=== PATIENT | female | born 1985 | race Two or more races ===

== ENCOUNTER → 2022-09-14 14:41 | Outpatient (BNVA) | payer SELFPAY | PROVIDERS: Visit Provider Physician Assistant Medical | DX: Z02.1 Encounter for pre-employment examination (principal) ==

== ENCOUNTER 2023-09-04 23:44 | Emergency (ER) | payer OTHER, MEDICAID, SELFPAY ==
--- NOTE | ~2023-09-04 | CT_ITS ---
EXAMINATION: CT ABDOMEN AND PELVIS WITH CONTRAST CLINICAL INFORMATION: Lower quadrant pain. COMPARISON: None available. TECHNIQUE: Multidetector volumetric images were obtained from the superior aspect of the liver through the pubic symphysis following administration 85 mL of Omnipaque 350 intravenous contrast. Sagittal and coronal reformatted images were obtained on the technologist's workstation. Oral contrast: No This CT examination was performed using dose optimization techniques as appropriate, variously including the following: *Automated exposure control *Adjustment of mA and/or kV according to patient size (this includes techniques or standardized protocols for targeted exams where dose is matched to indication/reason for exam; i.e. extremities or head) *Use of iterative reconstruction technique DLP: 701 mGy-cm FINDINGS: LUNG BASES: The visualized lung bases are unremarkable. LIVER, GALLBLADDER, AND BILIARY TREE: The liver is normal in size, shape, and attenuation. No focal hepatic lesion or biliary ductal dilatation is present. The gallbladder is unremarkable with no evidence of radiopaque gallstones, gallbladder wall thickening, or obvious pericholecystic inflammatory changes. PANCREAS: Unremarkable. SPLEEN: Unremarkable. ADRENAL GLANDS: Unremarkable. KIDNEYS AND URETERS: The kidneys are normal in size, shape, and attenuation. No hydronephrosis, hydroureter, or calculi seen. No perinephric stranding. BLADDER: Unremarkable. GASTROINTESTINAL TRACT: The small and large bowel are unremarkable. The appendix is unremarkable. ABDOMINAL WALL: No significant hernia is appreciated. LYMPH NODES: Normal. VASCULAR: Unremarkable. PELVIC VISCERA: Unremarkable. OSSEOUS STRUCTURES: Unremarkable. CT/CT abdomen pelvis w IV con IMPRESSION: No significant abnormality. Fleischner guidelines were followed.
[2023-09-05 00:33] VITALS: BP 109/77; PULSE 74; RESP 16; TEMP 37; O2SAT 97; BMI 33.0
[2023-09-05 00:51] LABS: MANUAL DIFF FLAG NO
[2023-09-05 00:56] LABS: Basophils Percent Auto 0.3 % (0-2); Eosinophils Absolute Auto 0.2 X10*3/uL (0.0-0.4); Eosinophils Percent Auto 1.7 % (0-4); Hematocrit 34.1 % (37.0-47.0); Hemoglobin 10.8 g/dl (12.0-16.0); Imm Gran Abs Auto 0.02 X10*3/uL (0.00-0.03); Imm Gran Pct Auto 0.2 % (0.0-0.4); Lymphocytes Absolute Auto 1.7 X10*3/uL (1.2-4.9); Lymphocytes Percent Auto 17.8 % (20-40); Mean Corpuscular HGB Conc 31.7 g/dl (31.0-35.0); Mean Corpuscular Hemoglobin 23.8 pg (27.0-33.0); Mean Corpuscular Volume 75.3 fL (80.0-98.0); Mean Platelet Volume 9.6 fL (9.4-12.3); Monocytes Absolute Auto 0.8 X10*3/uL (0.1-1.2); Monocytes Percent Auto 8.1 % (2-11); Neutrophils Absolute Auto 6.7 x10*3/uL (2.0-8.3); Neutrophils Percent Auto 71.9 % (45-73); Platelet Count 405 X10*3/uL (160-400); Red Blood Count 4.53 X10*6/uL (4.20-5.50); Red Cell Distribution Width 16.7 % (11.0-16.0); White Blood Count 9.3 X10*3/uL (4.8-10.8)
[2023-09-05 01:00] LABS: Appearance Urine Clear; Color Urine Yellow; Glucose Urine UA Negative (Negative); Leukocyte Esterase Urine Negative (Negative); Nitrite Urine Negative (Negative); Specific Gravity - Urine 1.025 (1.005-1.025); Urine Blood Negative (Negative); Urine Ketones Negative (Negative); Urine Protein Negative (Neg-Trace)
[2023-09-05 01:01] LABS: UPreg QC Valid YES; Urine Pregnancy NEGATIVE (NEGATIVE)
[2023-09-05 01:06] LABS: Alanine Aminotransferase 11 U/L (0-31); Alkaline Phosphatase 60 U/L (39-117); Anion Gap 12 (12-20); Aspartate Amino Transferase 14 U/L (5-31); Bilirubin Total 0.2 mg/dL (0.0-1.0); Blood Urea Nitrogen 15 mg/dL (9-16); Calcium 8.9 mg/dL (8.4-10.2); Carbon Dioxide 24 mmol/L (22-29); Chloride 109 mmol/L (96-108); Creatinine Clr Calc Pharmacy 82.8; Estimated Glomerular Filt Rate > 60; Glucose Random 96 mg/dL (60-115); Potassium 3.5 mmol/L (3.3-5.1); Sodium 141 mmol/L (135-145); Total Protein 7.4 g/dL (6.5-8.0)
--- NOTE | 2023-09-05 01:33 | ED_ITS ---
HPI - Abdominal Pain General Chief Complaint: Abdominal Pain Stated Complaint: LLQ pain Time Seen by Provider: 09/05/23 01:27 Source: patient Mode of arrival: ambulatory Limitations: no limitations History of Present Illness HPI narrative: Patient comes to the emergency room complaining of 20 hours of left lower quadrant pain. Patient states that the pain has been constant. Patient woke up feeling well but suddenly when she started walking realized that she had left lower quadrant pain. Patient denies nausea vomiting or diarrhea, no fever chills, no URI or UTI symptoms, denies hematuria. Patient denies any abdominal surgeries. Patient states that when she was 16-year-old she had a small bowel obstruction for unclear reason and was hospitalized for 2 weeks. Patient states that about a year ago she had a liposuction. Related Data Previous Rx's Medication Instructions Recorded tramadol 50 mg tablet 50 mg PO BID PRN pain #7 tabs 09/05/23 Allergies Allergy/AdvReac Type Severity Reaction Status Date / Time latex Allergy Facial Verified 09/05/23 00:32 Swelling Review of Systems Review of Systems Constitutional : No Weight loss, No Fever, No Chills, No Night Sweats, No Fatigue, No Malaise ENT/Mouth : No Hearing loss, No Ear Pain, No Nasal Congestion, No Sinus Pain, No Hoarseness, No sore throat, No Rhinorrhea, No Swallowing Difficulty Eyes: No Eye Pain, No Swelling, No Redness, No Foreign Body, No Discharge, No Vision Changes Cardiovascular : No Chest Pain, No SOB, No Dyspnea on Exertion, No Orthopnea, No Edema, No Palpitations Respiratory : No Cough, No Sputum, No Wheezing, No Smoke Exposure, No Dyspnea Gastrointestinal : No Nausea, No Vomiting, No Diarrhea, No Constipation, complaining of bilateral lower quadrant pain Genitourinary : no irregular bleeding, No Dysuria, No Urinary Frequency, No Hematuria, No Urinary Incontinence, No Urgency, No Flank Pain, No Urinary Flow Changes, No Hesitancy Musculoskeletal : No joint pain, No Myalgias, No Joint Swelling Skin : No Skin Lesions, No rash Neuro : No Weakness, No Numbness, No Paresthesias, No Loss of Consciousness, No Dizziness, No Headache Psych : No Anxiety/Panic, No Depression, No SI/HI/AH/VH, No Social Issues, Heme/Lymph: No Bruising, No Bleeding,No Lymphadenopathy Endocrine : No Polyuria, No Polydipsia, No Temperature Intolerance [facility] Social History Social History Smoked in Last 30 Days: No Use of substances other than those prescribed or required for medical reasons: No Advance Directives: No Advance Directives Information Provided: No Physical Exam ED Vital Signs: Vital Signs - 24 hr 09/05/23 00:33 09/05/23 03:20 Temperature 98.6 F 98.1 F Pulse Rate 74 70 Respiratory Rate 16 16 Blood Pressure 109/77 115/70 Pulse Oximetry 97 98 Oxygen Delivery Method Room Air Room Air BMI result Body Mass Index 33.0 Const Other: Appearance: Alert. Oriented X3. No acute distress. Eyes: Pupils equal, round and reactive to light. ENT: Pharynx normal. Neck: Normal inspection. Neck supple. No lymph nodes noted. No crepitus CVS: Normal heart rate and rhythm. Pulses normal. Normal S1 and S2 Respiratory: No respiratory distress. Breath sounds normal. No Wheezing. No rales Abdomen: Soft , bilateral tenderness in both lower quadrants, guarding, no rebound, patient has lumpy Skin in both lower quadrants. No crepitus Skin: Skin warm and dry. Normal skin color. Normal skin turgor. Extremities: No lower extremity edema. No Lacerations. No Rash Neuro: Oriented X 3. No motor deficit. No sensory deficit. Moving all extremities. No slurred speech. CN 2 through 12 grossly intact Psych: calm, cooperative, normal affect Course Course Course Narrative: CT scan pending Medical Decision Making Medical Decision Making [facility] Narrative: -my interpretation of labs: Patient's hematology shows a hemoglobin of 10.8, bit lower than usual. Patient denies rectal bleeding. Chemistry normal, LFTs normal, urinalysis negative. Urine negative. -at this time, patient declined pain medication -CT scan of the abdomen does not show any acute abnormality. Differential Diagnosis Differential Diagnoses: The differential diagnosis associated with the presentation includes (Diverticulitis, diverticulosis, SBO, functional abdominal pain, kidney stone) Admission/Observation Consideration of admission/observation: Escalation of care including admission/observation considered (Given patient's history and presentation, patient was considered) Lab Data [facility] Lab Attestation statement: I reviewed the patient's lab results. 09/05/23 00:47 09/05/23 00:47 Labs: Lab Results 09/05/23 Range/Units 00:47 WBC 9.3 (4.8-10.8) X10*3/uL RBC 4.53 (4.20-5.50) X10*6/uL Hgb 10.8 L (12.0-16.0) g/dl Hct 34.1 L (37.0-47.0) % MCV 75.3 L (80.0-98.0) fL MCH 23.8 L (27.0-33.0) pg MCHC 31.7 (31.0-35.0) g/dl RDW 16.7 H (11.0-16.0) % Plt Count 405 H (160-400) X10*3/uL MPV 9.6 (9.4-12.3) fL Immature Gran % (Auto) 0.2 (0.0-0.4) % Neut % (Auto) 71.9 (45-73) % Lymph % (Auto) 17.8 L (20-40) % Drew % (Auto) 8.1 (2-11) % Eos % (Auto) 1.7 (0-4) % Baso % (Auto) 0.3 (0-2) % Lymph # (Auto) 1.7 (1.2-4.9) X10*3/uL Drew # (Auto) 0.8 (0.1-1.2) X10*3/uL Eos # (Auto) 0.2 (0.0-0.4) X10*3/uL Baso # (Auto) 0.0 (0.0-0.2) X10*3/uL Abs Immat Gran (auto) 0.02 (0.00-0.03) X10*3/uL Absolute Neuts (auto) 6.7 (2.0-8.3) x10*3/uL Absolute Nucleated RBC 0.000 (0.0-0.012) X10*3/uL Nucleated RBC % (auto) 0.0 (0.0-0.2) /100WBC Sodium 141 (135-145) mmol/L Potassium 3.5 (3.3-5.1) mmol/L Chloride 109 H (96-108) mmol/L Carbon Dioxide 24 (22-29) mmol/L Anion Gap 12 (12-20) BUN 15 (9-16) mg/dL Creatinine 0.93 (0.5-1.4) mg/dL Estim Creat Clear Calc 82.8 Estimated GFR > 60 Random Glucose 96 (60-115) mg/dL Calcium 8.9 (8.4-10.2) mg/dL Total Bilirubin 0.2 (0.0-1.0) mg/dL AST 14 (5-31) U/L ALT 11 (0-31) U/L Alkaline Phosphatase 60 (39-117) U/L Total Protein 7.4 (6.5-8.0) g/dL Albumin 4.0 (3.5-5.0) g/dL Urine Color Yellow Urine Appearance Clear Urine pH 7.0 (5.0-9.0) Ur Specific [place] 1.025 (1.005-1.025) Urine Protein Negative (Neg-Trace) mg/dL Urine Glucose (UA) Negative (Negative) mg/dL Urine Ketones Negative (Negative) mg/dL Urine Blood Negative (Negative) Urine Nitrite Negative (Negative) Ur Leukocyte Esterase Negative (Negative) Urine Test NEGATIVE (NEGATIVE) Independent Interpretation I performed an independent interpretation of an: CT Scan Radiology Impression Discussion of test interpretation with radiology: I have reviewed the radiologist's reading. Radiologist Impression: FINDINGS: LUNG BASES: The visualized lung bases are unremarkable. LIVER, GALLBLADDER, AND BILIARY TREE: The liver is normal in size, shape, and attenuation. No focal hepatic lesion or biliary ductal dilatation is present. The gallbladder is unremarkable with no evidence of radiopaque gallstones, gallbladder wall thickening, or obvious pericholecystic inflammatory changes. PANCREAS: Unremarkable. SPLEEN: Unremarkable. ADRENAL GLANDS: Unremarkable. KIDNEYS AND URETERS: The kidneys are normal in size, shape, and attenuation. No hydronephrosis, hydroureter, or calculi seen. No perinephric stranding. BLADDER: Unremarkable. GASTROINTESTINAL TRACT: The small and large bowel are unremarkable. The appendix is unremarkable. ABDOMINAL WALL: No significant hernia is appreciated. LYMPH NODES: Normal. VASCULAR: Unremarkable. PELVIC VISCERA: Unremarkable. OSSEOUS STRUCTURES: Unremarkable. CT/CT abdomen pelvis w IV con IMPRESSION: No significant abnormality. Fleischner guidelines were followed. Medications Administered Discontinued Medications Generic Name Dose Route Start Last Admin Trade Name Freq PRN Reason Stop Dose Admin Iohexol 100 ml 09/05/23 02:04 09/05/23 02:05 Iohexol 350 Mg/Ml 100 Ml Infus..Btl IV 09/05/23 02:05 100 ml ONCE ONE Administration Critical Care Time Critical Care Time Critical Care Time: Yes Total Critical Care Time: 30 Attestation: I have personally provided critical care time. Time includes review of lab data, radiology results, discussion with consultants, and monitoring for potential decompensation. Intervention performed as documented. Discharge Plan Discharge Clinical Impression: Abdominal pain Patient Disposition: Home, Self-Care Instructions: Abdominal Pain (ED) Additional Instructions: Please follow-up with your primary care physician tomorrow. If you have any worsening or new symptoms, please return to the emergency room or call 911 Prescriptions: New tramadol 50 mg tablet 50 mg PO BID PRN (Reason: pain) Qty: 7 0RF
[2023-09-05] MEDS: iohexoL 350 MG/ML 100 ML INFUS..BTL IV (02:05)
[2023-09-05 03:20] VITALS: BP 115/70; PULSE 70; RESP 16; TEMP 36.7; O2SAT 98
[2023-09-05 04:32] VITALS: BP 115/70; PULSE 70; RESP 16; TEMP 36.7; O2SAT 98
== END 2023-09-05 04:35 | disposition home or self-care (01) ==
PROVIDERS: Emergency Provider Emergency Medicine
DX: R10.32 Left lower quadrant pain (principal)
CPT/HCPCS: 36415; 74177; 80053; 81003; 81025; 85025; 99284; Q9967

== ENCOUNTER 2024-01-29 18:27 | Emergency (ER) | payer OTHER, SELFPAY ==
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
[2024-01-29 18:40] VITALS: BP 139/85; PULSE 85; RESP 18; TEMP 36.7; O2SAT 98; BMI 30.6
--- OUTSIDE RECORDS SUMMARY | 2024-01-29 19:38 | XMS_ITS | Continuity of Care Document ---
Author Organization [facility] Address [address], [address], [address] [place] [id number]- Care Team Providers Care Template Fitter Name Role Phone Manuel NIELSEN, Dorothy Primary Care Physician Encounter [facility] Date(s): 03/31/22 - 04/07/22 [facility] [address], [address], [address] [place] [id number]- Attending Physician: Pal NIELSEN, Benjy Terry Referring Physician: Dorothy Jackson NP Allergies, Adverse Reactions, Alerts Substance Reaction Severity Status predniSONE 1 Active 1lips swelled Immunizations Given and Recorded Vaccine Date Status Refusal Reason tetanus/diphtheria/pertussis, acel(Tdap) 1 04/07/22 Given influenza virus vaccine, inactivated 2 04/07/22 Gi gina SARS-CoV-2 (COVID-19) mRNA BNT-162b2 vac 08/04/20 Recorded Tet/diphth/pertussis, acel (oldterm) 3 04/07/11 Gi gina Fluarix (oldterm) 4 04/07/11 Given Human Papillomavirus Vaccine 5 08/12/10 Given Human Papillomavirus Vaccine 6 05/27/10 Given Human Papillomavirus Vaccine 7 03/04/10 Given Fluzone (oldterm) 8 05/12/10 Given 1Result Comment: [id number] 2Result Comment: NDC [id number] 3Admin Note: 05/08/08 VIS Given. 4Admin Note: 01/13/11 VIS Given. 5Admin Note: VIS Given. 6Admin Note: 07/23/06 VIS Given. 7Admin Note: 07/23/06 VIS Given. Pt. left 10minutes post-injection asymptomatic. 8Admin Note: 01/28/10 VIS Given. Medications Strattera 60 mg oral capsule 0 Refills, Maintenance, 03/17/21 16:24:00 EDT, Partial fill upon patient request if the prescription is for a schedule II opioid drug. Start Date: 03/17/21 Status: Ordered SUMAtriptan 25 mg oral tablet 1 tablet = 25 mg, By Mouth, Once, PRN for migraine headache, take at onset of bad migraine. no refill in under 30 days, # 9 tablet, 6 Refills, Soft Stop, 03/31/22 8:40:00 EDT, Tablet, [id number], lowering dose., 162.1, cm, 03/17/21 14:49:00 E... Start Date: 03/31/22 Status: Ordered topiramate 25 mg oral tablet 3 tablet = 75 mg, By Mouth, Daily at bedtime, # 90 tablet, 6 Refills, Maintenance, 03/31/22 8:39:00EDT, Tablet, [id number], changing to the 25mg tabs., 162.1, cm, 03/17/21 14:49:00 EDT, Height Start Date: 03/31/22 Stop Date: 10/27/22 Status: Ordered Problem List Condition Confirmation Course Effective Dates Status H ealth Status Informant Sterilization Confirmed Active Cosmetic surgery requested Confirmed Active Depo-provera injection given Confirmed Active 9 VD x 2 Confirmed Active Headache Confirmed Active History of seizures 1 Confirmed Active Iron deficiency anemia Confirmed Active Well woman exam Confirmed Active 1none since age 4 Social History Social History Type Response Smoking Status Former smoker, quit more than 30 days ago; Other: not for 15 years; entered on: 04/07/22 Sex Patient Care team information Personnel Name: Dorothy Jackson NP Address: Address: [address] [place] [id number]
--- OUTSIDE RECORDS SUMMARY | 2024-01-29 19:38 | XMS_ITS | Continuity of Care Document ---
Author Organization [facility] Adult Address [address] [place] [address]- Care Team Providers Care Plastic Bubble Packer Name Role Phone Manuel NIELSEN, Dorothy Primary Care Physician [facility] Date(s): 01/27/23 - 05/27/23 [facility] Adult [address] [place] [address]- Attending Physician: Dorothy Jackson NP Allergies, Adverse Reactions, Alerts Substance Reaction Severity Status predniSONE 1 Active Latex Active 1lips swelled Immunizations Given and Recorded Vaccine Date Status Refusal Reason influenza virus vaccine, inactivated 1 05/10/23 Gi gnia influenza virus vaccine, inactivated 2 04/07/22 Gi gina tetanus/diphtheria/pertussis, acel(Tdap) 3 04/07/22 Given [id number] 12y+ bivalent booster vax 03/10/22 Recorded SARS-CoV-2 mRNA (qbypipy-ihqg-yqsbe) vax 07/15/21 Recorded SARS-CoV-2 (COVID-19) mRNA BNT-162b2 vac 08/04/20 Recorded SARS-CoV-2 (COVID-19) mRNA BNT-162b2 vac 07/14/20 Recorded Tet/diphth/pertussis, acel (oldterm) 4 04/07/11 Gi gina Fluarix (oldterm) 5 04/07/11 Given Human Papillomavirus Vaccine 6 08/12/10 Given Human Papillomavirus Vaccine 7 05/27/10 Given Human Papillomavirus Vaccine 8 03/04/10 Given Fluzone (oldterm) 9 05/12/10 Given 1Result Comment: [facility] [id number] 2Result Comment: [facility] [id number] 3Result Comment: [id number] 4Admin Note: 05/08/08 VIS Given. 5Admin Note: 01/13/11 VIS Given. 6Admin Note: VIS Given. 7Admin Note: 07/23/06 VIS Given. 8Admin Note: 07/23/06 VIS Given. Pt. left 10minutes post-injection asymptomatic. 9Admin Note: 01/28/10 VIS Given. Medications Adderall By Mouth, 2 times a day, 0 Refills, Maintenance, 02/15/23 9:10:00 EDT, Partial fill upon patient request if the prescription is for a schedule II opioid drug. Start Date: 02/15/23 Status: Ordered ferrous sulfate 325 mg oral enteric coated tablet 325 mg, 1, tablet, By Mouth, 2 times a day, # 180 tablet, Refills 3, Tot. Refills 3, Maintenance, 05/11/23 7:13:00 EST, Route to Pharmacy Electronically, [facility]/pharmacy #[id number], Partial fill upon patientrequest if the prescription is for a schedule II op... Start Date: 05/11/23 Stop Date: 05/05/24 Status: Ordered Strattera 60 mg oral capsule 0 Refills, Maintenance, 03/17/21 16:24:00 EDT, Partial fill upon patient request if the prescription is for a schedule II opioid drug. Start Date: 03/17/21 Status: Ordered SUMAtriptan 25 mg oral tablet 1 tablet = 25 mg, By Mouth, Once, PRN for migraine headache, take at onset of bad migraine. no refill in under 30 days. 9 tabs per 30 days, # 9 tablet, 6 Refills, Soft Stop, 07/02/22 15:26:00 EST, Tablet, [id number], lowering dose., 160.5, cm... Start Date: 07/02/22 Status: Ordered topiramate 100 mg oral tablet 1 tablet = 100 mg, By Mouth, Daily at bedtime, # 30 tablet, 8 Refills, Maintenance, 09/10/22 16:56:00 EDT, Tablet, [id number], Partial fill upon patient request if the prescription is for a schedule II opioid drug., 160.5, cm, 04/21/22 7:35:00... Start Date: 09/10/22 Stop Date: 06/07/23 Status: Ordered Vitamin C 500 mg oral tablet 1 tablet = 500 mg, By Mouth, 2 times a day, # 180 tablet, 3 Refills, Maintenance, 05/11/23 7:13:00 EST, Tablet, [id number], Partial fill upon patient request if the prescription is for a schedule II opioid drug., 159.3, cm, 05/10/23 8:11:00 ES... Start Date: 05/11/23 Stop Date: 05/05/24 Status: Ordered Problem List Condition Confirmation Course Effective Dates Status H ealth Status Informant Sterilization Confirmed Active Cosmetic surgery requested Confirmed Active Depo-provera injection given Confirmed Active 9 VD x 2 Confirmed Active Headache Confirmed Active History of seizures 1 Confirmed Active Iron deficiency anemia Confirmed Active Well woman exam Confirmed Active Obese class I Confirmed Active 1none since age 4 Social History Social History Type Response Smoking Status Former smoker, quit more than 30 days ago; Other: not for 15 years; entered on: 04/07/22 Sex Patient Care team information Care Team Personnel Name: Dorothy Jackson NP Position: [facility] PCO Associate Professional Member Role: PCP Address: Address: [address] [place] [id number]- Care Team Related Persons Name: AC BERRY Address: home [address] [place] [address]
--- OUTSIDE RECORDS SUMMARY | 2024-01-29 19:38 | XMS_ITS | Continuity of Care Document ---
Author Organization [facility] Address [address] [place] [address]- Care Team Providers Care Mine Car Mechanic Name Role Phone Dorothy Jackson NP Primary Care Physician Encounter [facility] Date(s): 07/10/21 - 08/09/21 [facility] [address] [address]- Attending Physician: Daniel Mercado Admitting Physician: Daniel Mercado Referring Physician: AdmtrDaniel Allergies, Adverse Reactions, Alerts Substance Reaction Severity Status predniSONE 1 Active 1lips swelled Immunizations Given and Recorded Vaccine Date Status Refusal Reason SARS-CoV-2 (COVID-19) mRNA BNT-162b2 vac 08/04/20 Recorded Tet/diphth/pertussis, acel (oldterm) 1 04/07/11 Gi gina Fluarix (oldterm) 2 04/07/11 Given Human Papillomavirus Vaccine 3 08/12/10 Given Human Papillomavirus Vaccine 4 05/27/10 Given Human Papillomavirus Vaccine 5 03/04/10 Given Fluzone (oldterm) 6 05/12/10 Given 1Admin Note: 05/08/08 VIS Given. 2Admin Note: 01/13/11 VIS Given. 3Admin Note: VIS Given. 4Admin Note: 07/23/06 VIS Given. 5Admin Note: 07/23/06 VIS Given. Pt. left 10minutes post-injection asymptomatic. 6Admin Note: 01/28/10 VIS Given. Medications Strattera 60 mg oral capsule 0 Refills, Maintenance, 03/17/21 16:24:00 EDT, Partial fill upon patient request if the prescription is for a schedule II opioid drug. Start Date: 03/17/21 Status: Ordered Problem List Condition Effective Dates Status Health Status Inform ant Chlamydia infection(Confirmed) 1 02/12/12 Active Sterilization(Confirmed) Active Cosmetic surgery requested(Confirmed) Active Depo-provera injection given(Confirmed) Active 9 VD x 2(Confirmed) Active Headache(Confirmed) Active History of seizures(Confirmed) 2 Active Iron deficiency anemia(Confirmed) Active Well woman exam(Confirmed) Active 1tx pending per aniceto (standing orders)-pt notified; to do pt's and expedited partner therapy as well. 2none since age 4 Social History Social History Type Response Smoking Status Former smoker, quit more than 30 days ago; Other: Quit 10+ years ago; entered on: 03/17/21 Sex
--- OUTSIDE RECORDS SUMMARY | 2024-01-29 19:38 | XMS_ITS | Continuity of Care Document ---
Author Organization [facility] Adult Address [address] [place] [address]- Care Team Providers Care Stripping Shovel Oiler Name Role Phone Dorothy Jackson NP Primary Care Physician Encounter [facility] Date(s): 04/07/22 - 04/14/22 [facility] Adult [address] [place] [phone]- Encounter Diagnosis Adult general medical exam(Discharge Diagnosis) - 04/07/22 Headache(Discharge Diagnosis) - 04/07/22 Attending Physician: Dorothy Jackson NP Allergies, Adverse [...] Fluzone (oldterm) 8 05/12/10 Given 1Result Comment: [id number] 2Result Comment: [facility] [id number] 3Admin Note: 05/08/08 VIS Given. 4Admin Note: [...] exam Confirmed Active 1none since age 4 Diagnosis Diagnosis Type Effective Dates Health Status Cl inical Service Informant Adult general medical exam Discharge Diagnosis 04/07/22 Headache Discharge Diagnosis 04/07/22 Vital Signs Most recent to oldest [Reference Range]: 1 Height 160.5 cm (04/07/22 9:36 AM) Weight 76.4 kg (04/07/22 9:36 AM) Pulse Rate [55-90 bpm] 55 bpm (04/07/22 9:36 AM) Body Mass Index [18.5-24.99 kg/m2] 29.66 kg/m2 *H* (04/07/22 9:36 AM) Blood Pressure [90-138/55-84 mm Hg] 102/ 62mm Hg (04/07/22 9:36 AM) Temperature [96.8-100.4 DegF] 98.6 DegF (04/07/22 9:36 AM) Mode of Delivery (Oxygen) Room air (04/07/22 9:36 AM) Blood pressure sites Arm, left (04/07/22 9:36 AM) Temperature Route Oral (04/07/22 9:36 AM) Weight Obtained Via Standing scale (04/07/22 9:36 AM) Social History Social History Type Response Smoking Status Former smoker, quit more than 30 days ago; Other: not for 15 years; entered on: 04/07/22 Sex Patient Care team information Personnel Name: Dorothy Jackson NP Address: Address: [address] [place] [id number]
--- OUTSIDE RECORDS SUMMARY | 2024-01-29 19:38 | XMS_ITS | Continuity of Care Document ---
Author Organization [facility] Adult Address [address] [place] [address]- Care Team Providers Care Dental Assisting Instructor Name Role Phone Dorothy Jackson NP Primary Care Physician [phone] [place]counter [facility] Date(s): 04/21/22 - 04/28/22 [facility] Adult [address] [place] [address]- Encounter Diagnosis Iron deficiency anemia(Discharge Diagnosis) - 04/21/22 History of seizures(Discharge Diagnosis) - 04/21/22 Attending Physician: Dorothy Jackson NP Referring Physician: Not on Staff, Referring MD Allergies, Adverse Reactions, Alerts Substance Reaction Severity Status predniSONE 1 Active 1lips swelled Immunizations Given and Recorded Vaccine Date Status Refusal Reason tetanus/diphtheria/pertussis, acel(Tdap) 1 04/07/22 Given influenza virus vaccine, inactivated 2 04/07/22 Gi gina [id number] 12y+ bivalent booster vax 03/10/22 Recorded SARS-CoV-2 mRNA (mzlodul-phst-ebqak) vax 07/15/21 Recorded SARS-CoV-2 (COVID-19) mRNA BNT-162b2 vac 08/04/20 Recorded SARS-CoV-2 (COVID-19) mRNA BNT-162b2 vac 07/14/20 Recorded Tet/diphth/pertussis, acel (oldterm) 3 04/07/11 Gi gina Fluarix (oldterm) 4 04/07/11 Given Human Papillomavirus Vaccine 5 08/12/10 Given Human Papillomavirus Vaccine 6 05/27/10 Given Human Papillomavirus Vaccine 7 03/04/10 Given Fluzone (oldterm) 8 05/12/10 Given 1Result Comment: [id number] 2Result Comment: [facility] [id number] 3Admin Note: 11/18/08 VIS Given. 4Admin Note: 01/13/11 VIS Given. [...] Condition Confirmation Course Effective Dates Status H ealt Status Informant Sterilization Confirmed Active Cosmetic surgery requested Confirmed Active Depo-provera injection given Confirmed Active 9 VD x 2 Confirmed Active Headache Confirmed Active History of seizures 1 Confirmed Active Iron deficiency anemia Confirmed Active Well woman exam Confirmed Active Obese class I Confirmed Active 1none since age 4 Diagnosis Diagnosis Type Effective Dates Health Status Clinical Service Informant Iron deficiency anemia Discharge Diagnosis 04/21/22 History of seizures Discharge Diagnosis 04/21/22 Vital Signs Most recent to oldest [Reference Range]: 1 Height 160.5 cm (04/21/22 7:35 AM) Weight 79.9 kg (04/21/22 7:35 AM) Oxygen Saturation [94-100 %] 98 % (04/21/22 7:35 AM) Pulse Rate [55-90 bpm] 70 bpm (04/21/22 7:35 AM) Body Mass Index [18.5-24.99 kg/m2] 31.02 kg/m2 *>HHI* (04/21/22 7:35 AM) Blood Pressure [90-138/55-84 mm Hg] 110/ 70mm Hg (04/21/22 7:35 AM) Temperature [96.8-100.4 DegF] 98 DegF (04/21/22 7:35 AM) Mode of Delivery (Oxygen) Room air (04/21/22 7:35 AM) Blood pressure sites Arm, left (04/21/22 7:35 AM) Temperature Route Oral (04/21/22 7:35 AM) Weight Obtained Via Standing scale (04/21/22 7:35 AM) Social History Social History Type Response Smoking Status Former smoker, quit more than 30 days ago; Other: not for 15 years; entered on: 04/07/22 Sex EKG study * Event Display: ECG 12-Lead Authored Date: Please click on pdf link to open report * Event Display: ECG 12-Lead Authored Date: Ventricular Rate: 65 BPM Atrial Rate: 65 BPM P-R Interval: 166 ms QRS Duration: 88 ms Q-T Interval: 404 ms QTC Calculation(Bazett): 420 ms P [place]: 10 degrees R [place]: 19 degrees T [place]: 8 degrees Normal sinus rhythm with sinus arrhythmia Normal ECG When compared with ECG of 04-FEB-2006 18:15, No significant change was found Confirmed by BLAIRE WOLFE DO ([id number]) on 04/22/2022 4:42:21 PM Talpa: BLAIRE WOLFE DO Note * Lisa Davis: PERFORM, SIGN, VERIFY Event Display: Patient Education/Instruction Authored Date: [facility] *[facility] Clinical Summary Name MOLLY GAINES Age 37 Years 1985 PCP Manuel NIELSEN, Dorothy PCP Visit Date 04/21/2022 07:32:00 Additional Instructions: Scheduled Appointments?? Future Appointments ?No Future Appointments Scheduled Follow-Up Instructions ?? Diagnosis Personal history of other specified conditions; Encounter for other preprocedural examination; Irondeficiency anemia, unspecified Medications: Please continue your medications until treatment is completed or stopped by your provider. Discuss any questions related to medications with your provider. Medications to Continue with No Changes These medications were not printed or sent to your pharmacy Atomoxetine (Strattera 60 mg oral capsule) Next Dose: Sumatriptan (SUMAtriptan 25 mg oral tablet) 1 tab(s) Oral once as needed for migraine headache. take at onset of bad migraine. no refill in under 30 days. Refills: 6. Next Dose: Topiramate (topiramate 25 mg oral tablet) 3 tab(s) Oral Daily at Bedtime for 30 Days. Refills: 6. Next Dose: Allergy Info:?? predniSONE Medications Given This Visit Future Orders ?No future orders Vital Signs Height 160.5 cm Weight 79.9 kg BMI 31.02 kg/m2 Blood Pressure 110 mm Hg/70 mm Hg Temperature 98 DegF Pulse Rate 70 bpm Respiratory Rate 02 Sat Mode of Delivery 98 %/Room air You can now view a summary of your hospital visit from the comfort of your home through a free online portal called [employer]. [employer] is a website that allows you to securely view your medical information including discharge summary, medications and follow-up visits. ??You can alsosend a secure electronic message to your doctor???s office to request appointments, renew medications or just ask a question. You can enroll at [email or web address] or register during your next office visit. Disclaimer:?? The information provided is of a general nature and is intended to be used in conjunction with the recommendations and advice of your health care practitioner. ??Every effort has been made to ensure that the information provided is accurate and complete at the time it is provided to you however, as your needs change, or, as new ??information becomes available, different or additional instructions may be required. If you have questions, please consult with your primary care provider or pharmacist, as appropriate. ??This information is not intended to serve as substitution for assessment and evaluation by a qualified health care provider. If you do not have a primary care provider, you may find a [facility] provider by calling [facility] at [phone]. For information about the plan of care including goals and instructions for your diagnosis, please see the patient education orders section of this document. Patient Education Materials?? The content of this educational material or handout may have been modified, supplemented, or adapted from its original content and format to support your individualized medical care. Patient Care team information Care Team Personnel Name: Dorothy Jackson NP Position: [facility] PCO Associate Professional Member Role: PCP Address: Address: [address] [place] [id number]- Care Team Related Persons Name: AC BERRY Address: [address] [address]
--- OUTSIDE RECORDS SUMMARY | 2024-01-29 19:38 | XMS_ITS | Continuity of Care Document ---
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 Name Role Phone Manuel NIELSEN, Dorothy Primary Care Physician Encounter [facility] Date(s): 07/02/22 - 08/01/22 [facility] [address], [address], [address] [place] [address]- Allergies, Adverse Reactions, Alerts Substance Reaction Severity Status predniSONE 1 Active 1lips swelled Immunizations Given and Recorded Vaccine Date Status Refusal Reason tetanus/diphtheria/pertussis, acel(Tdap) 1 04/07/22 Given influenza virus vaccine, inactivated 2 04/07/22 Gi gina [id number] 12y+ bivalent booster vax 03/10/22 Recorded SARS-CoV-2 mRNA (fbykhky-wjbw-xvabe) vax 07/15/21 Recorded SARS-CoV-2 (COVID-19) mRNA BNT-162b2 vac 08/04/20 Recorded SARS-CoV-2 (COVID-19) mRNA BNT-162b2 vac 07/14/20 Recorded Tet/diphth/pertussis, acel (oldterm) 3 04/07/11 Gi gina Fluarix (oldterm) 4 04/07/11 Given Human Papillomavirus Vaccine 5 08/12/10 Given Human Papillomavirus Vaccine 6 05/27/10 Given Human Papillomavirus Vaccine 7 03/04/10 Given Fluzone (oldterm) 8 05/12/10 Given 1Result Comment: [id number] 2Result Comment: [facility] [id number] 3Admin Note: 05/08/08 VIS Given. 4Admin Note: [...] Mouth, Daily at bedtime, # 30 tablet, 6 Refills, Maintenance, 07/09/22 14:42:00 EST, Tablet, [id number], Partial fill upon patient request if the prescription is for a schedule II opioid drug., 160.5, cm, 04/21/22 7:35:00... Start Date: 07/09/22 Stop Date: 02/04/23 Status: Ordered Problem List Condition Confirmation Course [...] Team Personnel Name: Dorothy Jackson NP Position: [facility] PCO Associate Professional Member Role: PCP Address: Address: [address] [place] [id number]- Care Team Related Persons Name: AC BERRY Address: home [address] [place] [address]
--- OUTSIDE RECORDS SUMMARY | 2024-01-29 19:38 | XMS_ITS | Continuity of Care Document ---
Author Organization [facility] Address Unknown Care Team Providers Care Geotechnical Field Technician Name Role Phone Dorothy Jackson NP Primary Care Physician Encounter [facility] Date(s): 09/26/21 - 10/26/21 [facility] Allergies, Adverse Reactions, Alerts Substance Reaction Severity [...]
--- OUTSIDE RECORDS SUMMARY | 2024-01-29 19:39 | XMS_ITS | Continuity of Care Document ---
Author Organization [facility] Adult Address [address] [place] [address]- Care Team Providers Care Director Of Perioperative Services Name Role Phone Manuel NIELSEN, Dorothy Primary Care Physician [phone] Encounter [facility] Date(s): 05/11/23 - 06/10/23 [facility] Adult [address] [place] [address]- Allergies, Adverse Reactions, Alerts Substance Reaction Severity Status predniSONE 1 Active Latex Active 1lips swelled Immunizations Given and Recorded Vaccine Date Status Refusal Reason influenza virus vaccine, inactivated 1 05/10/23 Gi gina influenza virus vaccine, inactivated 2 04/07/22 Gi gina tetanus/diphtheria/pertussis, acel(Tdap) 3 04/07/22 Given [id number] 12y+ bivalent booster vax 03/10/22 Recorded SARS-CoV-2 mRNA (ivyfcxg-hgyi-rlnet) vax 07/15/21 Recorded SARS-CoV-2 (COVID-19) mRNA BNT-162b2 vac 08/04/20 Recorded SARS-CoV-2 (COVID-19) mRNA BNT-162b2 vac 07/14/20 Recorded Tet/diphth/pertussis, acel (oldterm) 4 04/07/11 Gi gina Fluarix (oldterm) 5 04/07/11 Given Human Papillomavirus Vaccine 6 08/12/10 Given Human Papillomavirus Vaccine 7 05/27/10 Given Human Papillomavirus Vaccine 8 03/04/10 Given Fluzone (oldterm) 9 05/12/10 Given 1Result Comment: [facility] [id number] 2Result Comment: [facility] [id number] 3Result Comment: [id number] 4Admin Note: 05/08/08 VIS Given. 5Admin Note: [...] 05/11/23 7:13:00 EST, Route to Pharmacy Electronically, [facility]/pharmacy #[id number], Partial fill upon patientrequest if [...] Associate Professional Member Role: PCP Address: Address: [address] [place] [address]- Care Team Related Persons Name: AC BERRY Address: home [address] [place] [address]
--- OUTSIDE RECORDS SUMMARY | 2024-01-29 19:39 | XMS_ITS | Continuity of Care Document ---
Author Organization [facility] Adult Address [address] [place] [address]- Care Team Providers Care Lifestyle Coordinator Name Role Phone Dorothy Jackson NP Primary Care Physician Encounter [facility] Date(s): 04/22/22 - 05/22/22 [facility] Adult [address] [place] [address]- Allergies, Adverse Reactions, Alerts Substance Reaction Severity Status predniSONE 1 Active 1lips swelled Immunizations Given and Recorded Vaccine Date Status Refusal Reason tetanus/diphtheria/pertussis, acel(Tdap) 1 04/07/22 Given influenza virus vaccine, inactivated 2 04/07/22 Gi gina [id number] 12y+ bivalent booster vax 03/10/22 Recorded SARS-CoV-2 mRNA (pnphgog-phap-djwwf) vax 07/15/21 Recorded SARS-CoV-2 (COVID-19) mRNA BNT-162b2 vac 08/04/20 Recorded SARS-CoV-2 (COVID-19) mRNA BNT-162b2 vac 07/14/20 Recorded Tet/diphth/pertussis, acel (oldterm) 3 04/07/11 Gi gina Fluarix (oldterm) 4 04/07/11 Given Human Papillomavirus Vaccine 5 08/12/10 Given Human Papillomavirus Vaccine 6 05/27/10 Given Human Papillomavirus Vaccine 7 03/04/10 Given Fluzone (oldterm) 8 05/12/10 Given 1Result Comment: [id number] 2Result Comment: [facility] [id number] 3Admin Note: 05/08/08 VIS Given. 4Admin Note: [...] Associate Professional Member Role: PCP Address: Address: [address] [place] [address]- Care Team Related Persons Name: AC BERRY Address: home [address] [place] [address]
--- OUTSIDE RECORDS SUMMARY | 2024-01-29 19:39 | XMS_ITS | Continuity of Care Document ---
Author Organization [facility] Adult Address [address] [place] [address]- Care Team Providers Care Curator Medical Museum Name Role Phone Dorothy Jackson NP Primary Care Physician [phone] Encounter [facility] [place] Date(s): 09/06/23 - 09/13/23 [facility] Adult [address] [place] [address]- Encounter Diagnosis LLQ pain(Discharge Diagnosis) - 09/06/23 Attending Physician: Layne Portillo MD Allergies, Adverse Reactions, Alerts Substance Reaction Severity Status predniSONE 1 Active Latex Active 1lips swelled Immunizations Given and Recorded Vaccine Date Status Refusal Reason SARS-CoV-2(COVID-19)mRNA-LNP vac([id number]) 05/24/23 Recorded influenza virus vaccine, inactivated 1 05/10/23 Gi gina influenza virus vaccine, inactivated 2 04/07/22 Gi gina tetanus/diphtheria/pertussis, acel(Tdap) 3 04/07/22 Given [id number] 12y+ bivalent booster vax 03/10/22 Recorded SARS-CoV-2 mRNA (idqvohe-ybpy-memvv) vax 07/15/21 Recorded SARS-CoV-2 (COVID-19) mRNA BNT-162b2 vac 08/04/20 Recorded SARS-CoV-2 (COVID-19) mRNA BNT-162b2 vac 07/14/20 Recorded Tet/diphth/pertussis, acel (oldterm) 4 04/07/11 Gi gina Fluarix (oldterm) 5 04/07/11 Given Human Papillomavirus Vaccine 6 08/12/10 Given Human Papillomavirus Vaccine 7 05/27/10 Given Human Papillomavirus Vaccine 8 03/04/10 Given Fluzone (oldterm) 9 05/12/10 Given 1Result Comment: [facility] [id number] 2Result Comment: [facility] [id number] 3Result Comment: [id number] 4Admin Note: 05/08/08 VIS Given. 5Admin Note: [...] 05/11/23 7:13:00 EST, Route to Pharmacy Electronically, [facility]/pharmacy #[id number], Partial fill upon patientrequest if the prescription is for a schedule II op... Start Date: 05/11/23 Stop Date: 05/05/24 Status: Ordered SUMAtriptan 25 mg oral tablet [...] Ordered topiramate 100 mg oral tablet 1 tablet, By Mouth, Daily at bedtime, # 90 tablet, 2 Refills, Maintenance, 07/08/23 11:54:00 EST, [id number], 159.3, cm, 05/10/23 8:11:00 EST, Height Start Date: 07/08/23 Status: Ordered Vitamin C 500 mg oral tablet 1 tablet = 500 mg, By Mouth, 2 times a day, # 180 tablet, 3 Refills, Maintenance, 05/11/23 7:13:00 EST, Tablet, [facility]/pharmacy #[id number], Partial fill upon patient request if [...] Diagnosis Diagnosis Type Effective Dates Health Status Clini yossi Service Informant LLQ pain Discharge Diagnosis 09/06/23 Vital Signs Most recent to oldest [Reference Range]: 1 Height 159.3 cm (09/06/23 3:42 PM) Weight 84 kg (09/06/23 3:42 PM) Oxygen Saturation [94-100 %] 98 % (09/06/23 3:42 PM) Pulse Rate [55-90 bpm] 81 bpm (09/06/23 3:42 PM) Body Mass Index [18.5-24.99 kg/m2] 33.1 kg/m2 *>HHI* (09/06/23 3:42 PM) Blood Pressure [90-138/55-84 mm Hg] 109/ 65mm Hg (09/06/23 3:42 PM) Mode of Delivery (Oxygen) Room air (09/06/23 3:42 PM) Blood pressure sites Arm, left (09/06/23 3:42 PM) Weight Obtained Via Standing scale (09/06/23 3:42 PM) Social History Social History Type Response Smoking Status Former smoker, quit more than 30 days ago; Other: not for 15 years; entered on: 04/07/22 Sex Note * Lisa Davis: PERFORM, SIGN, VERIFY Event Display: Patient Education/Instruction Authored Date: [id number] [facility] *[facility] [place] [facility] Clinical Summary Name MOLLY GAINES Age 38 Years 1985 PCP Dorothy Jackson NP PCP Visit Date 09/06/2023 15:36:00 Additional Instructions: Scheduled Appointments?? Future Appointments ?No Future Appointments Scheduled Follow-Up Instructions ?? Diagnosis Medications: Please continue your medications until treatment is completed or stopped by your provider. Discuss any questions related to medications with your provider. Medications to Continue with No Changes These medications were not printed or sent to your pharmacy Amphetamine-Dextroamphetamine (Adderall) Oral twice a day. Next Dose: Ascorbic Acid (Vitamin C 500 mg oral tablet) 1 tab(s) Oral twice a day for 90 Days. Refills: 3. Next Dose: Ferrous Sulfate (ferrous sulfate 325 mg oral enteric coated tablet) 1 tab(s) Oral twice a day for 90 Days. Refills: 3. Next Dose: Sumatriptan (SUMAtriptan 25 mg oral tablet) 1 tab(s) Oral once as needed for migraine headache. take at onset of bad migraine. no refill in under 30 days. 9 tabs per 30 days. Refills: 6. Next Dose: Topiramate (topiramate 100 mg oral tablet) 1 tab(s) Oral Daily at Bedtime. Refills: 2. Next Dose: No Longer Take the Following Medications Atomoxetine (Strattera 60 mg oral capsule) Allergy Info:?? Latex; predniSONE Medications Given This Visit Future Orders ?No future orders Future Orders ?No future orders Vital Signs Height 159.3 cm Weight 84 kg BMI 33.1 kg/m2 Blood Pressure 109 mm Hg/65 mm Hg Temperature Pulse Rate 81 bpm Respiratory Rate 02 Sat Mode of Delivery 98 %/Room air You can now view a summary of your hospital visit from the comfort of your home through a free online portal called [email or web address]. [email or web address] is a website that allows you to securely view your medical information including discharge summary, medications and follow-up visits. ??You can alsosend a secure electronic message to your doctor???s office to request appointments, renew medications or just ask a question. You can enroll at [email or web address] or register during your next office visit. [...] primary care provider, you may find a [facility] provider by calling [facility] [employer] Link at [phone]. [facility], in keeping with [facility] guidance, no longer requires face masks for staff, patientsor visitors in most situations. Similar to time spent indoors at other locations, there is the chance that you were exposed to respiratory viruses during your time with us (such as flu or COVID-19).? If you develop symptoms concerning for a viral respiratory infection, please seek testing (and treatment if indicated) from your medical provider or home test kit. For information about the plan of care [...] Associate Professional Member Role: PCP Address: Address: [address] [place] [address]- Care Team Related Persons Name: AC BERRY Address: home [address] [place] [address]
--- OUTSIDE RECORDS SUMMARY | 2024-01-29 19:39 | XMS_ITS | Continuity of Care Document ---
Author Organization [facility] Address [address] [facility], 3r d Floor, [address] [place] [address]- Care Team Providers Care Leach Tank Tender Name Role Phone Manuel NIELSEN, Dorothy Primary Care Physician [phone] Encounter [facility] [place] Date(s): 07/09/22 - 08/08/22 [facility] [address] [facility], 3rd Floor, [address] [place] [address]- Attending Physician: Daniel Mercado Admitting Physician: Daniel Mercado Referring Physician: AdmtrDaniel Allergies, Adverse Reactions, Alerts Substance Reaction Severity Status predniSONE 1 Active 1lips swelled Immunizations Given and Recorded Vaccine Date Status Refusal Reason tetanus/diphtheria/pertussis, acel(Tdap) 1 04/07/22 Given influenza virus vaccine, inactivated 2 04/07/22 Gi gina [id number] 12y+ bivalent booster vax 03/10/22 Recorded SARS-CoV-2 mRNA (myywosy-fiky-wsmaw) vax 07/15/21 Recorded SARS-CoV-2 (COVID-19) mRNA BNT-162b2 vac 08/04/20 Recorded SARS-CoV-2 (COVID-19) mRNA BNT-162b2 vac 07/14/20 Recorded Tet/diphth/pertussis, acel (oldterm) 3 04/07/11 Gi gina Fluarix (oldterm) 4 04/07/11 Given Human Papillomavirus Vaccine 5 08/12/10 Given Human Papillomavirus Vaccine 6 05/27/10 Given Human Papillomavirus Vaccine 7 03/04/10 Given Fluzone (oldterm) 8 05/12/10 Given 1Result Comment: [id number] 2Result Comment: [facility] [id number] 3Admin Note: 05/08/08 VIS Given. 4Admin Note: [...] Associate Professional Member Role: PCP Address: Address: [address] [place] [id number] Care Team Related Persons Name: AC BERRY Address: home [address] [place] [address]
--- OUTSIDE RECORDS SUMMARY | 2024-01-29 19:39 | XMS_ITS | Continuity of Care Document ---
Author Organization [facility] Address [address] [address]- Care Team Providers Care Sales Communications Manager Name Role Master MachinistSotero Lucia MD Primary Care Physician Encounter [facility] [id number] Date(s): 09/13/19 - 01/11/20 [facility] [address] [place] [address]- [facility] Attending Physician: Sisi Ayers CNM Admitting Physician: Sisi Ayers CNM Referring Physician: Sisi Ayers CNM Allergies, Adverse Reactions, Alerts Substance Reaction Severity Status NKA Active Immunizations Given and Recorded Vaccine Date Status Refusal Reason Tet/diphth/pertussis, acel (oldterm) 1 04/07/11 Gi gina [...] asymptomatic. 6Admin Note: 01/28/10 VIS Given. Medications amitriptyline 10 mg oral tablet 3 tablet = 30 mg, By Mouth, Daily at bedtime, # 90 tablet, 5 Refills, Maintenance, 09/21/14 16:19:02, 3 tablet By Mouth Daily at bedtime Start Date: 09/21/14 Status: Ordered Depo-Provera Contraceptive 150 mg/ml intramuscular suspension = 150 mg, Intramuscular, Once, # 1 mL, 3 Refills, Soft Stop, 12/03/14 9:54:48, 150 mg IntramuscularOnce Start Date: 12/03/14 Status: Ordered MetroGel-Vaginal 0.75% vaginal gel with applicator 1 application, Vaginally, Once, # 70 Gm, 0 Refills, Soft Stop, 03/19/15 14:55:18, Gel, 1 application Vaginally Once Start Date: 03/19/15 Status: Ordered naproxen 500 mg oral tablet 1 tablet = 500 mg, By Mouth, 2 times a day, # 180 tablet, 1 Refills, Maintenance, 12/03/14 10:36:15, Tablet, 1 tablet By Mouth 2 times a day,x90 days Start Date: 12/03/14 Stop Date: 06/01/15 Status: Ordered topiramate 50 mg oral tablet 1 tablet = 50 mg, By Mouth, 2 times a day, # 60 tablet, 6 Refills, Maintenance, 10/09/15 13:49:02, Tablet Start Date: 10/09/15 Stop Date: 05/06/16 Status: Ordered Valtrex 500 mg oral tablet See Instructions, 1 tablet By Mouth Every 12 hours for 5 days, # 30 tablet, 4 Refills, Maintenance,500mg PO BID x 3 days for outbreak, 03/22/15 15:12:21, 1 tablet By Mouth Every 12 hours for 5 days Start Date: 03/22/15 Status: Ordered Problem List Condition Effective Dates Status Health Status Inform ant Chlamydia infection(Confirmed) 1 02/12/12 Active Sterilization(Confirmed) Active Cosmetic surgery requested(Confirmed) Active Depo-provera injection given(Confirmed) Active 9 VD x 2(Confirmed) Active Headache(Confirmed) Active Well woman exam(Confirmed) Active 1tx pending per aniceto (standing orders)-pt notified; to do pt's and expedited partner therapy as well. Social History Social History Type Response Smoking Status Current some day smo ker entered on: 03/19/15 Sex
--- OUTSIDE RECORDS SUMMARY | 2024-01-29 19:39 | XMS_ITS | Continuity of Care Document ---
Author Organization [facility] Address [address] [place] [address]- Care Team Providers Care Shield Cleaner Name Role Phone Manuel NIELSEN, Dorothy Primary Care Physician Encounter [facility] Date(s): 04/11/21 - 08/09/21 [facility] [place] [address] [place] [address]- Attending Physician: Josiah Valentine MD Referring Physician: Dorothy Jackson NP Allergies, Adverse [...]
--- OUTSIDE RECORDS SUMMARY | 2024-01-29 19:39 | XMS_ITS | Continuity of Care Document ---
Author Organization [facility] Address [address] [facility], 3r d Floor, [address] [place] [address]- Care Team Providers Care Hearing Aid Consultant Name Role Phone Dorothy Jackson NP Primary Care Physician [phone] Encounter [facility] [place] Date(s): 03/31/22 - 04/30/22 [facility] [address], [address] Floor, [address] [place] [address]- Attending Physician: Daniel Mercado Admitting Physician: AdmtrDaniel Referring Physician: Admtr, ArIsela Allergies, Adverse Reactions, Alerts Substance Reaction Severity Status predniSONE 1 Active 1lips swelled Immunizations Given and Recorded Vaccine Date Status Refusal Reason tetanus/diphtheria/pertussis, acel(Tdap) 1 04/07/22 Given influenza virus vaccine, inactivated 2 04/07/22 Gi gina [id number] 12y+ bivalent booster vax 03/10/22 Recorded SARS-CoV-2 mRNA (rmspncw-jzwk-ofbzy) vax 07/15/21 Recorded SARS-CoV-2 (COVID-19) mRNA BNT-162b2 vac 08/04/20 Recorded SARS-CoV-2 (COVID-19) mRNA BNT-162b2 vac 07/14/20 Recorded Tet/diphth/pertussis, acel (oldterm) 3 04/07/11 Gi gina Fluarix (oldterm) 4 04/07/11 Given Human Papillomavirus Vaccine 5 08/12/10 Given Human Papillomavirus Vaccine 6 05/27/10 Given Human Papillomavirus Vaccine 7 03/04/10 Given Fluzone (oldterm) 8 05/12/10 Given 1Result Comment: [id number] 2Result Comment: [facility] [id number] 3Admin Note: 11/18/08 VIS Given. 4Admin Note: [...] Associate Professional Member Role: PCP Address: Address: [address] [place] [address]- Care Team Related Persons Name: AC BERRY Address: home [address] [place] [address]
--- OUTSIDE RECORDS SUMMARY | 2024-01-29 19:39 | XMS_ITS | Continuity of Care Document ---
Author Organization [facility] Address [address] [place] [address]- Care Team Providers Care Crab Backer Name Role Phone Dorothy Jackson NP Primary Care Physician Encounter [facility] [place] Date(s): 03/17/21 - 03/24/21 [facility] [address] [place] [address]- Encounter Diagnosis Lightheaded(Discharge Diagnosis) - 03/17/21 Dizziness(Discharge Diagnosis) - 03/17/21 Iron deficiency anemia(Discharge Diagnosis) - 03/17/21 Migraines(Discharge Diagnosis) - 03/17/21 Anxiety(Discharge Diagnosis) - 03/17/21 ADHD(Discharge Diagnosis) - 03/17/21 Attending Physician: Lucas Madrigal MD Referring Physician: Dorothy Jackson NP Allergies, [...] therapy as well. 2none since age 4 Diagnosis Diagnosis Type Effective Dates Health Status Clinical Service Informant Lightheaded Discharge Diagnosis 03/17/21 Dizziness Discharge Diagnosis 03/17/21 Iron deficiency anemia Discharge Diagnosis 03/17/21 Migraines Discharge Diagnosis 03/17/21 Anxiety Discharge Diagnosis 03/17/21 ADHD Discharge Diagnosis 03/17/21 Vital Signs Most recent to oldest [Reference Range]: 1 Height 162.1 cm (03/17/21 2:49 PM) Social History Social History Type Response Smoking Status Former smoker, quit more than 30 days ago; Other: Quit 10+ years ago; entered on: 03/17/21 Sex
--- OUTSIDE RECORDS SUMMARY | 2024-01-29 19:39 | XMS_ITS | Continuity of Care Document ---
Author Organization [facility] Address [address] [place] [address]- Care Team Providers Care Auto Driver Name Role Nnps Sotero FIERRO Primary Care Physician Encounter [facility] [place] Date(s): 02/03/21 - 03/05/21 [facility] [address] [place] [address]- Allergies, Adverse Reactions, Alerts Substance Reaction Severity [...] asymptomatic. 6Admin Note: 01/28/10 VIS Given. Medications Depo-Provera Contraceptive 150 mg/mL intramuscular suspension 1 mL = 150 mg, Intramuscular, Every 3 months, # 1 mL, 3 Refills, Maintenance, 01/30/20 10:40:00 EDT, [id number], 162.1, cm, 01/30/20 10:13:00 EDT, Height Start Date: 01/30/20 Status: Ordered Problem List Condition Effective Dates Status Health Status Inform ant Chlamydia infection(Confirmed) 1 8/24/12 Active Sterilization(Confirmed) Active Cosmetic surgery requested(Confirmed) Active Depo-provera injection given(Confirmed) Active 9 VD x 2(Confirmed) Active Headache(Confirmed) Active Well woman exam(Confirmed) Active 1tx pending per aniceto (standing orders)-pt notified; to do pt's and expedited partner therapy as well. Social History Social History Type Response Smoking Status Former smoker, quit more than 30 days ago entered on: 01/30/20 Sex
--- OUTSIDE RECORDS SUMMARY | 2024-01-29 19:39 | XMS_ITS | Continuity of Care Document ---
Author Organization [facility] Address Unknown Care Team Providers Care Dental Associate Name Role Phone Dorothy Jackson NP Primary Care Physician [phone] [place] [facility] [place] 11[place] 12/05/21 [facility] Attending Physician: Bipin Arrieta MD Referring Physician: Dorothy Jackson NP Allergies, [...] drug. Start Date: 03/17/21 Status: Ordered SUMAtriptan 50 mg oral tablet 1 tablet = 50 mg, By Mouth, Once, PRN for migraine headache, take at onswt of bad migraine. No refill in under 30 days, # 9 tablet, 5 Refills, Soft Stop, 11/28/21 12:36:00 EDT, [facility]t, [id number], Partial fill upon patient request if the pres... Start Date: 11/28/21 Status: Ordered topiramate 50 mg oral tablet 1.5 tablet = 75 mg, By Mouth, Daily at bedtime, # 45 tablet, 5 Refills, Maintenance, 11/28/21 12:34:00 EDT, [id number], Partial fill upon patient request if the prescription is for a scheduleII opioid drug., 162.1, cm, 03/17/21 14:49:00 EDT,... Start Date: 11/28/21 Stop Date: 05/27/22 Status: Ordered Problem List Condition Effective Dates [...]
--- OUTSIDE RECORDS SUMMARY | 2024-01-29 19:39 | XMS_ITS | Continuity of Care Document ---
Author Organization [facility] Address [address] [place] [address]- Care Team Providers Care Ditching Machine Operator Name Role Phone Manuel NIELSEN, Dorothy Primary Care Physician Encounter [facility] Date(s): 05/11/23 - 06/10/23 [facility] [address] [place] [address]- Allergies, Adverse Reactions, Alerts Substance Reaction Severity Status predniSONE 1 Active Latex Active 1lips swelled Immunizations Given and Recorded Vaccine Date Status Refusal Reason influenza virus vaccine, inactivated 1 05/10/23 Gi gina influenza virus vaccine, inactivated 2 04/07/22 Gi gina tetanus/diphtheria/pertussis, acel(Tdap) 3 04/07/22 Given [id number] 12y+ bivalent booster vax 03/10/22 Recorded SARS-CoV-2 mRNA (vfuxjha-amjs-gvgux) vax 07/15/21 Recorded SARS-CoV-2 (COVID-19) mRNA BNT-162b2 vac 08/04/20 Recorded SARS-CoV-2 (COVID-19) mRNA BNT-162b2 vac 07/14/20 Recorded Tet/diphth/pertussis, acel (oldterm) 4 04/07/11 Gi gina Fluarix (oldterm) 5 04/07/11 Given Human Papillomavirus Vaccine 6 08/12/10 Given Human Papillomavirus Vaccine 7 05/27/10 Given Human Papillomavirus Vaccine 8 03/04/10 Given Fluzone (oldterm) 9 05/12/10 Given 1Result Comment: [facility] [id number] 2Result Comment: [facility] [id number] 3Result Comment: [id number] 4Admin Note: 05/08/08 VIS Given. 5Admin Note: [...] 05/11/23 7:13:00 EST, Route to Pharmacy Electronically, [facility]/pharmacy #[id number], Partial fill upon patientrequest if the [...] Associate Professional Member Role: PCP Address: Address: [address] [place] [address]- Care Team Related Persons Name: AC BERRY Address: home [address] [place] [address]
--- OUTSIDE RECORDS SUMMARY | 2024-01-29 19:39 | XMS_ITS | Continuity of Care Document ---
Author Organization [facility] Address [address] [facility], [address]r d Floor, [address] [place] [address]- Care Team Providers Care Bar Tacker Sewing Machine Name Role Phone Dorothy Jackson NP Primary Care Physician Encounter [facility] Date(s): 03/26/23 - 04/25/23 [facility] [address], [address] Floor, [address] [place] [address] Allergies, Adverse Reactions, Alerts Substance Reaction Severity Status predniSONE 1 Active Latex Active 1lips swelled Immunizations Given and Recorded Vaccine Date Status Refusal Reason tetanus/diphtheria/pertussis, acel(Tdap) 1 04/07/22 Given influenza virus vaccine, inactivated 2 04/07/22 Gi gina [id number] 12y+ bivalent booster vax 03/10/22 Recorded SARS-CoV-2 mRNA (vbppaop-edei-svykn) vax 07/15/21 Recorded SARS-CoV-2 (COVID-19) mRNA BNT-162b2 vac 08/04/20 Recorded SARS-CoV-2 (COVID-19) mRNA BNT-162b2 vac 07/14/20 Recorded Tet/diphth/pertussis, acel (oldterm) 3 04/07/11 Gi gina Fluarix (oldterm) 4 04/07/11 Given Human Papillomavirus Vaccine 5 08/12/10 Given Human Papillomavirus Vaccine 6 05/27/10 Given Human Papillomavirus Vaccine 7 03/04/10 Given Fluzone (oldterm) 8 05/12/10 Given 1Result Comment: [id number] 2Result Comment: [facility][NOTE 3] [id number] 3Admin Note: 05/08/08 VIS Given. 4Admin Note: 01/13/11 VIS Given. 5Admin Note: VIS Given. 6Admin Note: 07/23/06 VIS Given. 7Admin Note: 07/23/06 VIS Given. Pt. left 10minutes post-injection asymptomatic. 8Admin Note: 01/28/10 VIS Given. Medications Adderall By Mouth, 2 times a day, 0 Refills, Maintenance, 02/15/23 9:10:00 EDT, Partial fill upon patient request if the prescription is for a schedule II opioid drug. Start Date: 02/15/23 Status: Ordered Strattera 60 mg oral capsule [...] Date: 09/10/22 Stop Date: 06/07/23 Status: Ordered Problem List Condition Confirmation Course [...] Team Personnel Name: Dorothy Jackson NP Position: [facility] PC[facility] Associate Professional Member Role: PCP Address: Address: [address] [place] [address]- Care Team Related Persons Name: AC BERRY Address: home [address] [facility] [address] [place] [address]
--- OUTSIDE RECORDS SUMMARY | 2024-01-29 19:39 | XMS_ITS | Continuity of Care Document ---
Author Organization [facility] Address [address] [address]- Care Team Providers Care Senior Ui Ux Designer Name Role International Specialist Sotero FIERRO Primary Care Physician Encounter [facility] [id number] Date(s): 08/16/19 - 10/19/19 [facility] [address] [address]- [facility] Attending Physician: Not on Staff, Attending MD Referring Physician: Sisi Ayers CNM Allergies, Adverse [...]
--- OUTSIDE RECORDS SUMMARY | 2024-01-29 19:39 | XMS_ITS | Continuity of Care Document ---
Author Organization [facility] Adult Address [address] [place] [address]- Care Team Providers Care Human Resources Benefits Manager Name Role Phone Dorothy Jackson NP Primary Care Physician Encounter [facility] Date(s): 11/10/23 - 12/10/23 [facility] [address] [place] [address]- Attending Physician: Daniel Mercado Admitting Physician: Admtr, Daniel Referring Physician: Admtr, Ar8 Allergies, Adverse Reactions, Alerts Substance Reaction Severity Status predniSONE 1 Active Latex Active 1lips swelled Immunizations Given and Recorded Vaccine Date Status Refusal Reason SARS-CoV-2(COVID-19)mRNA-LNP vac([id number]) 05/24/23 Recorded influenza virus vaccine, inactivated 1 05/10/23 Gi gina influenza virus vaccine, inactivated 2 04/07/22 Gi gina tetanus/diphtheria/pertussis, acel(Tdap) 3 04/07/22 Given [id number] 12y+ bivalent booster vax 03/10/22 Recorded SARS-CoV-2 mRNA (xblxsxh-wzqp-esqgy) vax 07/15/21 Recorded SARS-CoV-2 (COVID-19) mRNA BNT-162b2 vac 08/04/20 Recorded SARS-CoV-2 (COVID-19) mRNA BNT-162b2 vac 07/14/20 Recorded Tet/diphth/pertussis, acel (oldterm) 4 04/07/11 Gi gina Fluarix (oldterm) 5 04/07/11 Given Human Papillomavirus Vaccine 6 08/12/10 Given Human Papillomavirus Vaccine 7 05/27/10 Given Human Papillomavirus Vaccine 8 03/04/10 Given Fluzone (oldterm) 9 05/12/10 Given 1Result Comment: [facility] [id number] 2Result Comment: [facility] [id number] 3Result Comment: [id number] 4Admin Note: 05/08/08 VIS Given. 5Admin Note: 01/13/11 VIS Given. 6Admin Note: VIS Given. 7Admin Note: 07/23/06 VIS Given. 8Admin Note: 07/23/06 VIS Given. Pt. left 10minutes post-injection asymptomatic. 9Admin Note: 01/28/10 VIS Given. Medications Adderall XR 30 mg oral capsule, extended release 1 capsule = 30 mg, By Mouth, Daily in AM, # 28 capsule, 0 Refills, Maintenance, 12/07/23 9:12:00 EDT, ER Capsule, [id number], Partial fill upon patient request if the prescription is for a schedule II opioid drug., 1 capsule By Mouth Daily in... Start Date: 12/07/23 Stop Date: 01/04/24 Status: Ordered ferrous sulfate 325 mg oral enteric coated tablet 325 mg, 1, tablet, By Mouth, 2 times a day, # 180 tablet, Refills 3, Tot. Refills 3, Maintenance, 05/11/23 7:13:00 EST, Route to [facility]acy [facility]ically, [id number], Partial fill upon patientrequest if the [...] bedtime, # 90 tablet, 2 Refills, Maintenance, 11/10/23 16:04:00 EDT, [id number], 159.1, cm, 11/10/23 15:30:00 EDT, Height Start Date: 11/10/23 Stop Date: 08/06/24 Status: Ordered Vitamin C 500 mg oral tablet 1 tablet = 500 mg, By Mouth, 2 times a day, # 180 tablet, 3 Refills, Maintenance, 05/11/23 7:13:00 EST, Tablet, [facility]/pharmacy #[id number], Partial fill upon patient request if the prescription is for a schedule II opioid drug., 159.3, cm, 05/10/23 8:11:00 ES... Start Date: 05/11/23 Stop Date: 05/05/24 Status: Ordered Problem List Condition Confirmation Course Effective Dates Status H ealth Status Informant ADHD Confirmed Active Sterilization Confirmed Active Cosmetic surgery requested Confirmed [...] Team Personnel Name: Dorothy Jackson NP Position: [facility] PCO Associate Professional Member Role: PCP Address: Address: [address] [place] [address]- Care Team Related Persons Name: CA BERRY Address: home [address] [place] [address]
--- OUTSIDE RECORDS SUMMARY | 2024-01-29 19:39 | XMS_ITS | Continuity of Care Document ---
Author Organization [facility] Address [address] [place] [address]- Care Team Providers Care Cooker Casing Name Role Phone Dorothy Jackson NP Primary Care Physician [phone] Encounter [facility] R [id number] Date(s): 02/15/23 - 03/17/23 [facility] [address] [place] [address]- Attending Physician: Daniel Mercado Admitting Physician: Admtr, Daniel Referring Physician: Admtr, Ar8 Allergies, Adverse Reactions, Alerts Substance Reaction Severity Status predniSONE 1 Active Latex Active 1lips swelled Immunizations Given and Recorded Vaccine Date Status Refusal Reason tetanus/diphtheria/pertussis, acel(Tdap) 1 04/07/22 Given influenza virus vaccine, inactivated 2 04/07/22 Gi gina [id number] 12y+ bivalent booster vax 03/10/22 Recorded SARS-CoV-2 mRNA (kbvyzvm-pkwv-fwylt) vax 07/15/21 Recorded SARS-CoV-2 (COVID-19) mRNA BNT-162b2 vac 08/04/20 Recorded SARS-CoV-2 (COVID-19) mRNA BNT-162b2 vac 07/14/20 Recorded Tet/diphth/pertussis, acel (oldterm) 3 04/07/11 Gi gina Fluarix (oldterm) 4 04/07/11 Given Human Papillomavirus Vaccine 5 08/12/10 Given Human Papillomavirus Vaccine 6 05/27/10 Given Human Papillomavirus Vaccine 7 03/04/10 Given Fluzone (oldterm) 8 05/12/10 Given 1Result Comment: [id number] 2Result Comment: [facility] [id number] 3Admin Note: 05/08/08 VIS Given. 4Admin Note: [...] Team Personnel Name: Dorothy Jackson NP Position: [facility] PCO Associate Professional Member Role: PCP Address: Address: [address] [place] [address]- Care Team Related Persons Name: AC BERRY Address: home [address] [place] [address]
--- OUTSIDE RECORDS SUMMARY | 2024-01-29 19:39 | XMS_ITS | Continuity of Care Document ---
Author Organization [facility] Adult Address [address] [place] [address]- Care Team Providers Care Telemedicine Physician Name Role Phone Dorothy Jackson NP Primary Care Physician [phone] [place] [facility] [place] 05/19/23 - 06/18/23 [facility] [address] [place] [address]- Allergies, Adverse Reactions, Alerts Substance Reaction Severity Status predniSONE 1 Active Latex Active 1lips swelled Immunizations Given and Recorded Vaccine Date Status Refusal Reason influenza virus vaccine, inactivated 1 05/10/23 Gi gina influenza virus vaccine, inactivated 2 04/07/22 Gi gina tetanus/diphtheria/pertussis, acel(Tdap) 3 04/07/22 Given [id number] 12y+ bivalent booster vax 03/10/22 Recorded SARS-CoV-2 mRNA (vvxxuiw-qkjr-qufcx) vax 07/15/21 Recorded SARS-CoV-2 (COVID-19) mRNA BNT-162b2 vac 08/04/20 Recorded SARS-CoV-2 (COVID-19) mRNA BNT-162b2 vac 07/14/20 Recorded Tet/diphth/pertussis, acel (oldterm) 4 04/07/11 Gi gina Fluarix (oldterm) 5 04/07/11 Given Human Papillomavirus Vaccine 6 08/12/10 Given Human Papillomavirus Vaccine 7 05/27/10 Given Human Papillomavirus Vaccine 8 03/04/10 Given Fluzone (oldterm) 9 05/12/10 Given 1Result Comment: [facility] [id number] 2Result Comment: [facility] [id number] 3Result Comment: [id number] 4Admin Note: 05/08/08 VIS Given. 5Admin Note: [...] EST, Route to Pharmacy Electronically, [facility]/pharm[facility] #[id number], Partial fill upon patientrequest if [...] Associate Professional Member Role: PCP Address: Address: [address] [place] [address]- Care Team Related Persons Name: AC BERRY Address: home [address] [place] [address]
--- OUTSIDE RECORDS SUMMARY | 2024-01-29 19:39 | XMS_ITS | Continuity of Care Document ---
Author Organization [facility] Address [address] [facility], [address] Floor, [address] [place] [address]- Care Team Providers Care Manager Mission Name Role Phone Dorothy Jackson NP Primary Care Physician Encounter [facility] Date(s): 09/10/22 - 10/10/22 [facility] [address], [address] Floor, [address] [place] [address]- Allergies, Adverse Reactions, Alerts Substance Reaction Severity Status predniSONE 1 Active 1lips swelled Immunizations Given and Recorded Vaccine Date Status Refusal Reason tetanus/diphtheria/pertussis, acel(Tdap) 1 04/07/22 Given influenza virus vaccine, inactivated 2 04/07/22 Gi gina [id number] 12y+ bivalent booster vax 03/10/22 Recorded SARS-CoV-2 mRNA (dhnmnhc-laqh-yladz) vax 07/15/21 Recorded SARS-CoV-2 (COVID-19) mRNA BNT-162b2 vac 08/04/20 Recorded SARS-CoV-2 (COVID-19) mRNA BNT-162b2 vac 07/14/20 Recorded Tet/diphth/pertussis, acel (oldterm) 3 04/07/11 Gi gina Fluarix (oldterm) 4 04/07/11 Given Human Papillomavirus Vaccine 5 08/12/10 Given Human Papillomavirus Vaccine 6 05/27/10 Given Human Papillomavirus Vaccine 7 03/04/10 Given Fluzone (oldterm) 8 05/12/10 Given 1Result Comment: [id number] 2Result Comment: [facility] [id number] 3Admin Note: 05/08/08 VIS Given. 4Admin Note: [...] Professional Member Role: PCP Address: Address: [address] [place] [address]- Care Team Related Persons Name: AC BERRY Address: home [address] [place] [address]
--- OUTSIDE RECORDS SUMMARY | 2024-01-29 19:39 | XMS_ITS | Continuity of Care Document ---
Author Organization [facility] Address Unknown Care Team Providers Care Oxidation Engineer Name Role Phone Dorothy Jackson NP Primary Care Physician Encounter [facility] Date(s): 08/01/21 - 08/31/21 [facility] Attending Physician: Daniel Mercado Admitting Physician: Daniel Mercado Referring Physician: Daniel Mercado Allergies, Adverse Reactions, Alerts Substance Reaction Severity [...]
--- OUTSIDE RECORDS SUMMARY | 2024-01-29 19:39 | XMS_ITS | Continuity of Care Document ---
Author Organization [facility] Address [address] [place] [address]- Care Team Providers Care Shirrer Name Role Glass Glazier Sotero FIERRO Primary Care Physician [phone] Encounter [facility] Date(s): 01/30/20 - 02/29/20 [facility] [address] [address]- [facility] Attending Physician: Daniel Mercado Admitting Physician: Daniel [...]
--- OUTSIDE RECORDS SUMMARY | 2024-01-29 19:39 | XMS_ITS | Continuity of Care Document ---
Author Organization [facility] Address [address] [place] [address]- Care Team Providers Care Master Data Analyst Name Role Callisthenics Instructor Sotero FIERRO Primary Care Physician [phone] Encounter [facility] Date(s): 01/31/20 - 03/01/[address] [address]- [facility] Attending Physician: Daniel Mercado Admitting Physician: AdmDaniel parmar Referring Physician: Admtr ArIsela Allergies, Adverse Reactions, Alerts Substance Reaction [...]
--- OUTSIDE RECORDS SUMMARY | 2024-01-29 19:39 | XMS_ITS | Continuity of Care Document ---
Author Organization [facility] Address [address] [facility], [address]r d Floor, [address] [place] [address]- Care Team Providers Care Resource Economist Name Role Phone Manuel NIELSEN, Dorothy Primary Care Physician Encounter [facility] Date(s): 07/09/22 - 07/16/22 [facility] [address], [address] Floor, [address] [place] [address]- Attending Physician: Pal NIELSEN, Benjy Terry Referring Physician: Dorothy Jackson NP Allergies, Adverse Reactions, Alerts Substance Reaction Severity Status predniSONE 1 Active 1lips swelled Immunizations Given and Recorded Vaccine Date Status Refusal Reason tetanus/diphtheria/pertussis, acel(Tdap) 1 04/07/22 Given influenza virus vaccine, inactivated 2 04/07/22 Gi gina [id number] 12y+ bivalent booster vax 03/10/22 Recorded SARS-CoV-2 mRNA (icgyeig-ewtf-nkdev) vax 07/15/21 Recorded SARS-CoV-2 (COVID-19) mRNA BNT-162b2 vac 08/04/20 Recorded SARS-CoV-2 (COVID-19) mRNA BNT-162b2 vac 07/14/20 Recorded Tet/diphth/pertussis, acel (oldterm) 3 04/07/11 Gi gina Fluarix (oldterm) 4 04/07/11 Given Human Papillomavirus Vaccine 5 08/12/10 Given Human Papillomavirus Vaccine 6 05/27/10 Given Human Papillomavirus Vaccine 7 03/04/10 Given Fluzone (oldterm) 8 05/12/10 Given 1Result Comment: [id number] 2Result Comment: [id number] 3Admin Note: 05/08/08 VIS Given. 4Admin Note: [...] Professional Member Role: PCP Address: Address: [address] [place] [address]- Care Team Related Persons Name: AC BERRY Address: home [address] [place] [address] [place] [address]
--- OUTSIDE RECORDS SUMMARY | 2024-01-29 19:39 | XMS_ITS | Continuity of Care Document ---
Author Organization [facility] Address [address] [facility], 3r d Floor, [address] [place] [address]- Care Team Providers Care Forklift Truck Operator Name Role Phone Dorothy Jackson NP Primary Care Physician Encounter [facility] Date(s): 09/08/22 - 10/08/[address] [facility] [address], [address] Floor, [address] [place] [address]- Allergies, Adverse Reactions, Alerts Substance Reaction Severity Status predniSONE 1 Active 1lips swelled Immunizations Given and Recorded Vaccine Date Status Refusal Reason tetanus/diphtheria/pertussis, acel(Tdap) 1 04/07/22 Given influenza virus vaccine, inactivated 2 04/07/22 Gi gina [id number]-KjN-[id number] 12y+ bivalent booster vax 03/10/22 Recorded SARS-CoV-2 mRNA (lhcnjbu-mcsh-cykmf) vax 07/15/21 Recorded SARS-CoV-2 (COVID-19) mRNA BNT-162b2 vac 08/04/20 Recorded SARS-CoV-2 (COVID-19) mRNA BNT-162b2 vac 07/14/20 Recorded Tet/diphth/pertussis, acel (oldterm) 3 04/07/11 Gi gina Fluarix (oldterm) 4 04/07/11 Given Human Papillomavirus Vaccine 5 08/12/10 Given Human Papillomavirus Vaccine 6 05/27/10 Given Human Papillomavirus Vaccine 7 03/04/10 Given Fluzone (oldterm) 8 05/12/10 Given 1Result Comment: [id number] 2Result Comment: [facility] [id number] 3Admin Note: 05/08/08 VIS Given. 4Admin Note: [...] Professional Member Role: PCP Address: Address: [address] [place] [address]- Care Team Related Persons Name: AC BERRY Address: home [address] [place] [address]
--- OUTSIDE RECORDS SUMMARY | 2024-01-29 19:39 | XMS_ITS | Continuity of Care Document ---
Author Organization [facility] Address [address] [place] [address]- Care Team Providers Care Eligibility Clerk Name Role Phone Manuel NIELSEN, Dorothy Primary Care Physician Encounter [facility] Date(s): 02/15/23 - 02/22/23 [facility] [address] [place] [address]- Encounter Diagnosis Cough(Discharge Diagnosis) - 02/15/23 Sore throat(Discharge Diagnosis) - 02/15/23 Upper back pain(Discharge Diagnosis) - 02/15/23 Attending Physician: Abel Nieves MD Referring Physician: Dorothy Jackson NP Allergies, Adverse Reactions, Alerts Substance Reaction Severity Status predniSONE 1 Active Latex Active 1lips swelled Immunizations Given and Recorded Vaccine Date Status Refusal Reason tetanus/diphtheria/pertussis, acel(Tdap) 1 04/07/22 Given influenza virus vaccine, inactivated 2 04/07/22 Gi gina [id number]-WmD-[id number] 12y+ bivalent booster vax 03/10/22 Recorded SARS-CoV-2 mRNA (onlatoq-ccmq-ewnqx) vax 07/15/21 Recorded SARS-CoV-2 (COVID-19) mRNA BNT-162b2 vac 08/04/20 Recorded SARS-CoV-2 (COVID-19) mRNA BNT-162b2 vac 07/14/20 Recorded Tet/diphth/pertussis, acel (oldterm) 3 04/07/11 Gi gina Fluarix (oldterm) 4 04/07/11 Given Human Papillomavirus Vaccine 5 08/12/10 Given Human Papillomavirus Vaccine 6 05/27/10 Given Human Papillomavirus Vaccine 7 03/04/10 Given Fluzone (oldterm) 8 05/12/10 Given 1Result Comment: [id number] 2Result Comment: [facility] [id number] 3Admin Note: 05/08/08 VIS Given. 4Admin Note: [...] Dates Health Status Cl inical Service Informant Cough Discharge Diagnosis 02/15/23 Sore throat Discharge Diagnosis 02/15/23 Upper back pain Discharge Diagnosis 02/15/23 Vital Signs Most recent to oldest [Reference Range]: 1 Height 160.5 cm (02/15/23 9:11 AM) Oxygen Saturation [94-100 %] 96 % (02/15/23 9:11 AM) Pulse Rate [55-90 bpm] 83 bpm (02/15/23 9:11 AM) Blood Pressure [90-138/55-84 mm Hg] 119/ 77mm Hg (02/15/23 9:11 AM) Respiratory Rate [16-30 br/min] 16 br/mi n (02/15/23 9:11 AM) Temperature [96.8-100.4 DegF] 97.9 DegF (02/15/23 9:11 AM) Mode of Delivery (Oxygen) Room air (02/15/23 9:11 AM) Blood pressure sites Arm, right (02/15/23 9:11 AM) Temperature Route Temporal (02/15/23 9:11 AM) Social History Social History Type Response Smoking Status Former smoker, quit more than 30 days ago; Other: not for 15 years; entered on: 04/07/22 Sex Patient Care team information Care Team Personnel Name: Dorothy Jackson NP Position: [facility] PCO Associate Professional Member Role: PCP Address: Address: [address] [place] [address]- Care Team Related Persons Name: KRISTIAC NULL Address: home [address] [address]
--- OUTSIDE RECORDS SUMMARY | 2024-01-29 19:39 | XMS_ITS | Continuity of Care Document ---
Author Organization [facility] Adult Address [address] [place] [address]- Care Team Providers Care Laboratory Phlebotomist Name Role Phone Dorothy Jackson NP Primary Care Physician Encounter [facility] Date(s): 11/10/23 - 11/17/23 [facility] Adult [address] [place] [address]- Encounter Diagnosis ADHD(Discharge Diagnosis) - 11/10/23 Attending Physician: Dorothy Jackson NP Allergies, Adverse Reactions, Alerts Substance Reaction Severity Status predniSONE 1 Active Latex Active 1lips swelled Immunizations Given and Recorded Vaccine Date Status Refusal Reason SARS-CoV-2(COVID-19)mRNA-LNP vac(lqk577) 05/24/23 Recorded influenza virus vaccine, inactivated 1 05/10/23 Gi gina influenza virus vaccine, inactivated 2 04/07/22 Gi gina tetanus/diphtheria/pertussis, acel(Tdap) 3 04/07/22 Given ZGZN-WxD-5pDNJ 12y+ bivalent booster vax 03/10/22 Recorded SARS-CoV-2 mRNA (xsknzmd-zoop-kuhqz) vax 07/15/21 Recorded SARS-CoV-2 (COVID-19) mRNA BNT-162b2 vac 08/04/20 Recorded SARS-CoV-2 (COVID-19) mRNA BNT-162b2 vac 07/14/20 Recorded Tet/diphth/pertussis, acel (oldterm) 4 04/07/11 Gi gina Fluarix (oldterm) 5 04/07/11 Given Human Papillomavirus Vaccine 6 08/12/10 Given Human Papillomavirus Vaccine 7 05/27/10 Given Human Papillomavirus Vaccine 8 03/04/10 Given Fluzone (oldterm) 9 05/12/10 Given 1Result Comment: [facility] [id number] 2Result Comment: [facility] [id number] 3Result Comment: [id number] 4Admin Note: 05/08/08 VIS Given. 5Admin Note: 01/13/11 VIS Given. 6Admin Note: VIS Given. 7Admin Note: 07/23/06 VIS Given. 8Admin Note: 07/23/06 VIS Given. Pt. left 10minutes post-injection asymptomatic. 9Admin Note: 01/28/10 VIS Given. Medications Adderall XR 30 mg oral capsule, extended release 1 capsule = 30 mg, By Mouth, Daily in AM, # 28 capsule, 0 Refills, Maintenance, 11/10/23 16:05:00 EDT, [facility], [id number], Partial fill upon patient request if the prescription is for a schedule II opioid drug., 1 capsule By Mouth Daily in... Start Date: 11/10/23 Stop Date: 12/08/23 Status: Ordered ferrous sulfate 325 mg oral [...] 3 Refills, Maintenance, 05/11/23 7:13:00 EST, Tablet, [facility]/pharmacy #[id number], Partial fill upon patient request [...] Dates Health Status Clini yossi Service Informant ADHD Discharge Diagnosis 11/10/23 Vital Signs Most recent to oldest [Reference Range]: 1 Height 159.1 cm (11/10/23 3:30 PM) Weight 85.1 kg (11/10/23 3:30 PM) Oxygen Saturation [94-100 %] 97 % (11/10/23 3:30 PM) Pulse Rate [55-90 bpm] 92 bpm *H* (11/10/23 3:30 PM) Body Mass Index [18.5-24.99 kg/m2] 33.62 kg/m2 *>HHI* (11/10/23 3:30 PM) Blood Pressure [90-138/55-84 mm Hg] 108/ 64mm Hg (11/10/23 3:30 PM) Temperature [96.8-100.4 DegF] 98.9 DegF (11/10/23 3:30 PM) Mode of Delivery (Oxygen) Room air (11/10/23 3:30 PM) Blood pressure sites Arm, left (11/10/23 3:30 PM) Temperature Route Oral (11/10/23 3:30 PM) Weight Obtained Via Standing scale (11/10/23 3:30 PM) Social History Social History Type Response Smoking Status Former smoker, quit more than 30 days ago; Other: not for 15 years; entered on: 04/07/22 Sex Patient Care team information Care Team Personnel Name: Dorothy Jackson NP Position: [facility] PC[facility] Associate Professional Member Role: PCP Address: Address: [address] [place] [address]- Care Team Related Persons Name: KRISTIAC Address: home [address] [place] [address]
--- OUTSIDE RECORDS SUMMARY | 2024-01-29 19:39 | XMS_ITS | Continuity of Care Document ---
Author Organization [facility] Adult Address [address] [place] [address]- Care Team Providers Care Physical Sciences Professor Name Role Phone Dorothy Jackson NP Primary Care Physician [place] [facility] [place](s): 04/21/22 - 05/21/22 [facility] [address] [place] [address]- Attending Physician: Admagata, Daniel Admitting Physician: Admtr, Daniel Referring Physician: Admtr, Ar8 Allergies, Adverse Reactions, Alerts Substance Reaction Severity Status predniSONE 1 Active 1lips swelled Immunizations Given and Recorded Vaccine Date Status Refusal Reason tetanus/diphtheria/pertussis, acel(Tdap) 1 04/07/22 Given influenza virus vaccine, inactivated 2 04/07/22 Gi gina [id number] 12y+ bivalent booster vax 03/10/22 Recorded SARS-CoV-2 mRNA (ftatlef-vdgu-icfya) vax 07/15/21 Recorded SARS-CoV-2 (COVID-19) mRNA BNT-162b2 vac 08/04/20 Recorded SARS-CoV-2 (COVID-19) mRNA BNT-162b2 vac 07/14/20 Recorded Tet/diphth/pertussis, acel (oldterm) 3 04/07/11 Gi gina Fluarix (oldterm) 4 04/07/11 Given Human Papillomavirus Vaccine 5 08/12/10 Given Human Papillomavirus Vaccine 6 05/27/10 Given Human Papillomavirus Vaccine 7 03/04/10 Given Fluzone (oldterm) 8 05/12/10 Given 1Result Comment: [id number] 2Result Comment: [facility] [id number] 3Admin Note: 05/08/08 VIS Given. 4Admin Note: [...] Associate Professional Member Role: PCP Address: Address: [address] [place] [address]- Care Team Related Persons Name: AC BERRY Address: home [address] [place] [address]
--- OUTSIDE RECORDS SUMMARY | 2024-01-29 19:39 | XMS_ITS | Continuity of Care Document ---
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 Role Phone Dorothy Jackson NP Primary Care Physician [phone] Encounter [facility] [place] Date(s): 05/10/23 - 05/17/23 [facility] [address] [place] [address]- Encounter Diagnosis Routine screening for STI (sexually transmitted infection)(Discharge Diagnosis) - 05/10/23 Adult general medical exam(Discharge Diagnosis) - 05/10/23 Mass of soft tissue(Discharge Diagnosis) - 05/10/23 Obese class I(Discharge Diagnosis) - 05/10/23 Bleeding nose(Discharge Diagnosis) - 05/10/23 Attending Physician: Dorothy Jackson NP Allergies, Adverse Reactions, Alerts Substance Reaction Severity Status predniSONE 1 Active Latex Active 1lips swelled Immunizations Given and Recorded Vaccine Date Status Refusal Reason influenza virus vaccine, inactivated 1 05/10/23 Gi gina influenza virus vaccine, inactivated 2 04/07/22 Gi gina tetanus/diphtheria/pertussis, acel(Tdap) 3 04/07/22 Given [id number] 12y+ bivalent booster vax 03/10/22 Recorded SARS-CoV-2 mRNA ([id number]) vax 07/15/21 Recorded SARS-CoV-2 (COVID-19) mRNA BNT-162b2 vac 08/04/20 Recorded SARS-CoV-2 (COVID-19) mRNA BNT-162b2 vac 07/14/20 Recorded Tet/diphth/pertussis, acel (oldterm) 4 04/07/11 Gi gina Fluarix (oldterm) 5 04/07/11 Given Human Papillomavirus Vaccine 6 08/12/10 Given Human Papillomavirus Vaccine 7 05/27/10 Given Human Papillomavirus Vaccine 8 03/04/10 Given Fluzone (oldterm) 9 05/12/10 Given 1Result Comment: [facility] [id number] 2Result Comment: [facility] [id number] 3Result Comment: [id number] 4Admin Note: 05/08/08 VIS Given. 5Admin Note: [...] 3 Refills, Maintenance, 05/11/23 7:13:00 EST, Tablet, [id number], Partial fill upon patient request if [...] Effective Dates Health Status Clinical Service Informant Routine screening for STI (sexually transmitted infection) Discharge Diagnosis 05/10/23 Adult general medical exam Discharge Diagnosis 05/10/23 Mass of soft tissue Discharge Diagnosis 05/10/23 Obese class I Discharge Diagnosis 05/10/23 Bleeding nose Discharge Diagnosis 05/10/23 Vital Signs Most recent to oldest [Reference Range]: 1 Height 159.3 cm (05/10/23 8:11 AM) Weight 79.9 kg (05/10/23 8:11 AM) Oxygen Saturation [94-100 %] 96 % (05/10/23 8:11 AM) Pulse Rate [55-90 bpm] 78 bpm (05/10/23 8:11 AM) Body Mass Index [18.5-24.99 kg/m2] 31.49 kg/m2 *>HHI* (05/10/23 8:11 AM) Blood Pressure [90-138/55-84 mm Hg] 100/ 66mm Hg (05/10/23 8:11 AM) Temperature [96.8-100.4 DegF] 98.2 DegF (05/10/23 8:11 AM) Mode of Delivery (Oxygen) Room air (05/10/23 8:11 AM) Blood pressure sites Arm, left (05/10/23 8:11 AM) Temperature Route Oral (05/10/23 8:11 AM) Weight Obtained Via Standing scale (05/10/23 8:11 AM) Social History Social History Type Response Smoking Status Former smoker, quit more than 30 days ago; Other: not for 15 years; entered on: 04/07/22 Sex Note * Robert Milla: PERFORM, SIGN, VERIFY Event Display: Patient Education/Instruction Authored Date: [id number] [facility] *[facility] [place] [facility] Clinical Summary Name MOLLY GAINES Age 38 Years 1985 PCP Manuel NIELSEN, Dorothy PCP Visit Date 05/10/2023 08:06:00 Additional Instructions: 1 year annual Scheduled Appointments?? Future Appointments ?No Future Appointments Scheduled Follow-Up Instructions ?? Diagnosis Medications: Please continue your medications until treatment is completed or stopped by your provider. Discuss any questions related to medications with your provider. Medications to Continue with No Changes These medications were not printed or sent to your pharmacy Amphetamine-Dextroamphetamine (Adderall) Oral twice a day. Next Dose: Atomoxetine (Strattera 60 mg oral capsule) Next Dose: Sumatriptan (SUMAtriptan 25 mg oral tablet) 1 tab(s) Oral once as needed for migraine headache. take at onset of bad migraine. no refill in under 30 days. 9 tabs per 30 days. Refills: 6. Next Dose: Topiramate (topiramate 100 mg oral tablet) 1 tab(s) Oral Daily at Bedtime for 30 Days. Refills: 8. Next Dose: Allergy Info:?? Latex; predniSONE Medications Given This Visit Medication Dose Route influenza virus vaccine, inactivated (influenza virus, inactivated vacc) 0.5 mL Intramuscular Future Orders ?MM Digital Mammo Screening? Order Date:05/10/23?- Complete on or after?05/10/23 ?Comprehensive Metabolic Panel? Order Date:05/10/23?- Complete on or after?05/10/23 ?CBC? Order Date:05/10/23?- Complete on or after?05/10/23 ?Lipid Panel? Order Date:05/10/23?- Complete on or after?05/10/23 ?US Soft Tissue Abdomen? Order Date:05/10/23?- Complete on or after?05/10/23 ?Chlamydia/N. Gonorrhoeae TMA (NAAT)? Order Date:05/10/23?- Complete on or after?05/10/23 ?HIV Ab-Ag 4th Generation? Order Date:05/10/23?- Complete on or after?05/10/23 Vital Signs Height 159.3 cm Weight 79.9 kg BMI 31.49 kg/m2 Blood Pressure 100 mm Hg/66 mm Hg Temperature 98.2 DegF Pulse Rate 78 bpm Respiratory Rate 02 Sat Mode of Delivery 96 %/Room air You can now view a summary of your hospital visit from the comfort of your home through a free online portal called [employer]. [employer] is a website that allows you to securely view your medical information including discharge summary, medications and follow-up visits. ??You can alsosend a secure electronic message to your doctor???s office to request appointments, renew medications or just ask a question. You can enroll at [email or web address] or register during your next office visit. [...] primary care provider, you may find a [facility] provider by calling [facility] [email or web address] Link at [phone]. [facility], in keeping with [facility] guidance, no longer requires face masks for [...] format to support your individualized medical care. * Dorothy Jakcson NP: PERFORM, SIGN, VERIFY Event Display: Patient Education/Instruction Authored Date: [id number] [facility] *[facility] Clinical Summary Name MOLLY GAINES Age 38 Years 1985 PCP Dorothy Jackson NP PCP Visit Date 05/10/2023 08:06:00 Additional Instructions: 1 year annual Scheduled Appointments?? Future Appointments ?No Future Appointments Scheduled Follow-Up Instructions ?? Diagnosis Medications: Please continue your medications until treatment is completed or stopped by your provider. Discuss any questions related to medications with your provider. Medications to Continue with No Changes These medications were not printed or sent to your pharmacy Amphetamine-Dextroamphetamine (Adderall) Oral twice a day. Next Dose: Atomoxetine (Strattera 60 mg oral capsule) Next Dose: Sumatriptan (SUMAtriptan 25 mg oral tablet) 1 tab(s) Oral once as needed for migraine headache. take at onset of bad migraine. no refill in under 30 days. 9 tabs per 30 days. Refills: 6. Next Dose: Topiramate (topiramate 100 mg oral tablet) 1 tab(s) Oral Daily at Bedtime for 30 Days. Refills: 8. Next Dose: Allergy Info:?? Latex; predniSONE Medications Given This Visit Medication Dose Route influenza virus vaccine, inactivated (influenza virus, inactivated vacc) 0.5 mL Intramuscular Future Orders ?MM Digital Mammo Screening? Order Date:05/10/23?- Complete on or after?05/10/23 ?Comprehensive Metabolic Panel? Order Date:05/10/23?- Complete on or after?05/10/23 ?CBC? Order Date:05/10/23?- Complete on or after?05/10/23 ?Lipid Panel? Order Date:05/10/23?- Complete on or after?05/10/23 ?US Soft Tissue Abdomen? Order Date:05/10/23?- Complete on or after?05/10/23 ?Chlamydia/N. Gonorrhoeae TMA (NAAT)? Order Date:05/10/23?- Complete on or after?05/10/23 ?HIV Ab-Ag 4th Generation? Order Date:05/10/23?- Complete on or after?05/10/23 Vital Signs Height 159.3 cm Weight 79.9 kg BMI 31.49 kg/m2 Blood Pressure 100 mm Hg/66 mm Hg Temperature 98.2 DegF Pulse Rate 78 bpm Respiratory Rate 02 Sat Mode of Delivery 96 %/Room air You can now view a summary of your hospital visit from the comfort of your home through a free online portal called [employer]. [employer] is a website that allows you to securely view your medical information including discharge summary, medications and follow-up visits. ??You can alsosend a secure electronic message to your doctor???s office to request appointments, renew medications or just ask a question. You can enroll at [email or web address] or register during your next office [...] primary care provider, you may find a [facility] provider by calling [facility] [email or web address] Link at [phone]. [facility], in keeping with [facility] guidance, no longer requires face masks for [...] Team Personnel Name: Dorothy Jackson NP Position: [facility] Associate Professional Member Role: PCP Address: Address: [address] [place] [address]- Care Team Related Persons Name: AC BERRY Address: home [address] [place] [id number]
--- OUTSIDE RECORDS SUMMARY | 2024-01-29 19:39 | XMS_ITS | Continuity of Care Document ---
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
--- OUTSIDE RECORDS SUMMARY | 2024-01-29 19:39 | XMS_ITS | Continuity of Care Document ---
Author Organization [facility] Adult Address [address] [place] [address]- Care Team Providers Care Special Services Coordinator Name Role Phone Dorothy Jackson NP Primary Care Physician Encounter [facility] [place] Date(s): 05/05/21 - 06/04/21 [facility] Adult [address] [place] [id number]- Allergies, Adverse Reactions, Alerts Substance Reaction Severity [...]
[2024-01-29 20:33] VITALS: BP 124/74; PULSE 79; RESP 20; TEMP 36.8; O2SAT 96
[2024-01-29 21:53] VITALS: BP 124/74; PULSE 79; RESP 20; TEMP 36.8; O2SAT 96
== END 2024-01-29 21:54 | disposition home or self-care (01) ==
PROVIDERS: Emergency Provider Emergency Medicine; PCP Nurse Practitioner Family
DX: Z04.1 Encounter for examination and observation following transport accident (principal); R51.9 Headache, unspecified; R42 Dizziness and giddiness
CPT/HCPCS: 70450; 72125; 99283; 99284